=== PATIENT | male | born 1980 | race Two or more races ===

== ENCOUNTER 2025-02-21 13:25 | Emergency (ER) | payer SELFPAY ==
[~2025-02-21] VITALS: Ht 175.3 cm; Wt 110.8 kg
--- NOTE | 2025-02-21 13:41 | ED.PDOC ---
History of Present Illness HPI Comments 44-year-old male with PMHx Lung Cancer presents with a chief complaint of right foot pain x 2 days. Patient mentions that in the past he jumped from a height and landed on his heels which ended up requiring surgery. Patient had surgery to his bilateral feet. Patient is now reporting that for the past 2 days he has been having pain to his right heel. Patient is ambulatory with steady gait at this time. Chief Complaint: Lower Extremity Time Seen by MD: 13:34 Reviewed Notes: Nurses Notes, Medications, Allergies Information Source: Patient Mode of Arrival: Ambulatory Severity: Moderate Timing: Days Duration: Since onset Prehospital treatment: None Past Medical History PAST MEDICAL HISTORY: Cancer (LUNG) Surgical History: Appendectomy, Cholecystectomy, Tonsillectomy Surgical History (Other): Back Surgery, Bilateral Foot Surgery Family History Family History: Reviewed,noncontributory to illness Social History Smoker: Cigarettes Alcohol: Sober Drugs: Marijuana Lives In: Home Constitutional: denies: chills, diaphoresis, fatigue, fever, malaise, sweats, weakness, others EENTM: denies: blurred vision, double vision, ear bleeding, ear discharge, ear drainage, ear pain, ear ringing, eye pain, eye redness, hearing loss, mouth pain, mouth swelling, nasal discharge, nose bleeding, nose congestion, nose pain, photophobia, tearing, throat pain, throat swelling, voice changes, others Respiratory: denies: cough, hemoptysis, orthopnea, SOB at rest, shortness of breath, SOB with excertion, stridor, wheezing, others Cardiovascular: denies: chest pain, dizzy spells, diaphoresis, Dyspnea on exertion, edema, irregular heart beat, left arm pain, lightheadedness, palpitations, PND, syncope, others Gastrointestinal: denies: abdomen distended, abdominal pain, blood streaked bowels, constipated, diarrhea, dysphagia, difficulty swallowing, hematemesis, melena, nausea, poor appetite, poor fluid intake, rectal bleeding, rectal pain, vomiting, others Genitourinary: denies: burning, dysuria, flank pain, frequency, hematuria, incontinence, penile discharge, penile sore, pain, testicle pain, testicle swelling, urgency, others Neurological: denies: dizziness, fainting, headache, left sided numbness, left sided weakness, numbness, paresthesia, pre-existing deficit, right sided numbness, right sided weakness, seizure, speech problems, tingling, tremors, weakness, others Musculoskeletal: reports: muscle pain; denies: back pain, gout, joint pain, joint swelling, muscle stiffness, neck pain, others Integumetry: denies: bruises, change in color, change in hair/nails, dryness, laceration, lesions, lumps, rash, wounds, others Allergic/Immunocompromised: denies: Difficulty Healing, Frequent Infections, Hives, Itching, others Hematologic/Lymphatic: denies: anemia, blood clots, easy bleeding, easy bruising, swollen glands, others Endocrine: denies: excessive hunger, excessive sweating, excessive thirst, excessive urination, flushing, intolerance to cold, intolerance to heat, unexplained weight gain, unexplained weight loss, others Psychiatric: denies: anxiety, bipolar disorder, depression, hopeless, panic disorder, schizophrenia, sleepless, suicidal, others All Other Systems: Reviewed and Negative Physical Exam General Appearance: No Apparent Distress HEENT: Normal ENT Inspection, Pharynx Normal, TMs Normal Neck: Full Range of Motion, Non-Tender, Normal, Normal Inspection Respiratory: Chest Non-Tender, Lungs Clear, No Accessory Muscle Use, No Respiratory Distress, Normal Breath Sounds Cardiovascular: No Edema, No JVD, No Murmur, No Gallop, Normal Peripheral Pulses, Regular Rate/Rhythm Breast Exam: Deferred Gastrointestinal: No Organomegaly, Non Tender, No Pulsatile Mass, Normal Bowel Sounds, Soft Genitalia: Deferred Pelvic: Deferred Rectal: Deferred Extremities: No calf tenderness, Normal capillary refill, No pedal edema Musculoskeletal : Location: Right Extremity Location: Foot Apperance: Tenderness: Moderate (Right calcaneal tenderness) Neurologic: Alert, crab fisherman II-XII nml as Tested, No Motor Deficits, Normal Affect, Normal Mood, No Sensory Deficits Cerebellar Function: Normal Reflexes: Normal Skin: Dry, Normal Color, Warm Lymphatic: No Adenopathy Was a procedure done? Was a procedure done?: No Differential Dx Considerations may include: Fracture, strain, dislocation X-Ray, Labs, Meds, VS Vital Signs Date Time Temp Pulse Resp B/P (MAP) Pulse Ox O2 Delivery O2 Flow Rate FiO2 02/21/25 13:38 97.8 59 16 159/95 (116) 97 97.8 X-ray of the calcaneal bone is negative at this time The patient was being discharged The patient will follow up with the primary care doctor The patient will return to the emergency department's condition worsens Images Reviewed?: Images reviewed and evaluated by me Time of 1ST Reevaluation: 14:04 Reevaluation 1ST: Unchanged Patient Education/Counseling: Diagnosis, Treatment, Prognosis, Need For Follow Up Family Education/Counseling: No Family Present Departure 1 Departure Time of Disposition: 14:26 Impression: Primary Impression: Foot pain Qualified Codes: M79.672 - Pain in left foot Disposition: 01 HOME / SELF CARE / HOMELESS Condition: Fair Discharged With: Self Critical Care Note Critical Care Time?: No Stability Stability form required: No Heart Score Heart Score: Heart Score Response (Comments) Value History N/A 0 EKG N/A 0 Age N/A 0 Risk Factors N/A 0 Troponin N/A 0 Total 0 I personally scribed for FLORENTIN CLAYTON MD ([email or web address]) on 02/21/25 at 13:41. Electronically submitted by Tin Aguilera ([email or web address]). FLORENTIN CLAYTON MD Feb 21, 2025 13:41
--- NOTE | 2025-02-21 14:02 | DVH ---
XY R CALCANEUS XRAY, HISTORY: right foot pain TECHNICAL DATA: Lateral and Maurice-Beath views were obtained of the right calcaneus. COMPARISON: None FINDINGS: Old appearing fracture deformity of the os calcis . There are arthrodesis screws of the calcaneal najma nt. IMPRESSION: 1. No acute bony pathology
[2025-02-21 14:34] VITALS: BP 151/91; PULSE 91; RESP 15; TEMP 97.6; O2SAT 91
== END 2025-02-21 14:37 | disposition home or self-care (01) ==
LOC: ER 13:25
DX: M79.671 Pain in right foot (principal); F12.90 Cannabis use, unspecified, uncomplicated; F17.210 Nicotine dependence, cigarettes, uncomplicated; Z90.89 Acquired absence of other organs; Z90.49 Acquired absence of other specified parts of digestive tract; Z98.890 Other specified postprocedural states
CPT/HCPCS: 73650

== ENCOUNTER 2025-03-09 09:42 | Emergency (ER) | payer OTHER ==
[~2025-03-09] VITALS: Ht 175.3 cm; Wt 108.8 kg
--- NOTE | 2025-03-09 10:18 | ED.PDOC ---
HPI Comments 44 year old male presents to the ED with chief complaint of chest pain. Patient reports that he has been experiencing left sided chest pressure/sharp pain with associated chills for the past 3 days. Patient relays that he previously had lung lobe removal surgery to his left lung due to lung cancer. Patient states he has also been experiencing a chronic headache since 11/26/24, taking Excedrin daily with no relief in pain noted. Patient denies any N/V, dizziness, SOB, coug h, nasal congestion, or fever. Chief Complaint: Chest Pain Time Seen by MD: 10:15 Primary Care Provider: none Reviewed Notes: Nurses Notes, Medications, Allergies Allergies: Coded Allergies: Hydrochlorothiazide (Verified Allergy, Severe, 02/21/25) Information Source: Patient Mode of Arrival: Ambulatory Severity: Moderate Timing: Days Duration: Since onset Prehospital treatment: None Location: Chest (L) Quality: Sharp, Pressure Onset: At Rest Cardiac Risk Factors: None PE Risk Factors: None History of: None Associated Signs and Symptoms: None Past Medical History PAST MEDICAL HISTORY: Cancer Surgical History: Appendectomy, Cholecystectomy, Tonsillectomy Surgical History (Other): Back surgery, lung lobe removal surgery Family History Family History: Reviewed,noncontributory to illness, Family hx of Cancer Social History Smoker: Cigarettes Alcohol: Sober Drugs: Marijuana Lives In: Home Constitutional: reports: chills; denies: diaphoresis, fatigue, fever, malaise, sweats, weakness, others EENTM: denies: blurred vision, double vision, ear bleeding, ear discharge, ear drainage, ear pain, ear ringing, eye pain, eye redness, hearing loss, mouth pain, mouth swelling, nasal discharge, nose bleeding, nose congestion, nose pain, photophobia, tearing, throat pain, throat swelling, voice changes, others Respiratory: denies: cough, hemoptysis, orthopnea, SOB at rest, shortness of breath, SOB with excertion, stridor, wheezing, others Cardiovascular: reports: chest pain; denies: dizzy spells, diaphoresis, Dyspnea on exertion, edema, irregular heart beat, left arm pain, lightheadedness, palpitations, PND, syncope, others Gastrointestinal: denies: abdomen distended, abdominal pain, blood streaked bowels, constipated, diarrhea, dysphagia, difficulty swallowing, hematemesis, melena, nausea, poor appetite, poor fluid intake, rectal bleeding, rectal pain, vomiting, others Genitourinary: denies: burning, dysuria, flank pain, frequency, hematuria, incontinence, penile discharge, penile sore, pain, testicle pain, testicle swelling, urgency, others Neurological: reports: headache; denies: dizziness, fainting, left sided numbness, left sided weakness, numbness, paresthesia, pre-existing deficit, right sided numbness, right sided weakness, seizure, speech problems, tingling, tremors, weakness, others Musculoskeletal: denies: back pain, gout, joint pain, joint swelling, muscle pain, muscle stiffness, neck pain, others Integumetry: denies: bruises, change in color, change in hair/nails, dryness, laceration, lesions, lumps, rash, wounds, others Allergic/Immunocompromised: denies: Difficulty Healing, Frequent Infections, Hives, Itching, others Hematologic/Lymphatic: denies: anemia, blood clots, easy bleeding, easy bruising, swollen glands, others Endocrine: denies: excessive hunger, excessive sweating, excessive thirst, excessive urination, flushing, intolerance to cold, intolerance to heat, unexplained weight gain, unexplained weight loss, others Psychiatric: denies: anxiety, bipolar disorder, depression, hopeless, panic disorder, schizophrenia, sleepless, suicidal, others All Other Systems: Reviewed and Negative Physical Exam General Appearance: No Apparent Distress HEENT: Normal ENT Inspection, Pharynx Normal, TMs Normal Neck: Full Range of Motion, Non-Tender, Normal, Normal Inspection Respiratory: Chest Non-Tender, Lungs Clear, No Accessory Muscle Use, No Re spiratory Distress, Normal Breath Sounds Cardiovascular: No Edema, No JVD, No Murmur, No Gallop, Normal Peripheral Pulses, Regular Rate/Rhythm Breast Exam: Deferred Gastrointestinal: No Organomegaly, Non Tender, No Pulsatile Mass, Normal Bowel Sounds, Soft Genitalia: Deferred Pelvic: Deferred Rectal: Deferred Extremities: No calf tenderness, Normal capillary refill, Normal inspection, Normal range of motion, Non-tender, No pedal edema Musculoskeletal : Apperance: Normal Neurologic: Alert, campaign management specialist II-XII nml as Tested, No Motor Deficits, Normal Affect, Normal Mood, No Sensory Deficits Cerebellar Function: Normal Reflexes: Normal Skin: Dry, Normal Color, Warm Lymphatic: No Adenopathy EKG EKG : Pulse Rate (adult): 96 [place]: Normal Cardiac Rhythm: NSR Block: None Hypertrophy: None ST: Normal Was a procedure done? Was a procedure done?: No CP Differential Dx Differential Diagnosis: Angina, IN Differential Diagnosis: CHF Differential Diagnosis: Pericarditis X-Ray, Labs, Meds, VS Vital Signs Date Time Temp Pulse Resp B/P (MAP) Pulse Ox O2 Delivery O2 Flow Rate FiO2 03/09/25 12:10 98.0 98 18 140/97 (111) 96 98.0 03/09/25 12:10 98 18 96 Room Air* 0 21 03/09/25 11:04 104 03/09/25 10:18 96 03/09/25 10:05 98.1 118 18 160/98 (118) 98 98.1 03/09/25 09:54 96 Lab Test 03/09/25 10:51 03/09/25 10:00 Range/Units Troponin I High Sensitivity < 3 L < 3 L </=54 ng/L White Blood Count 6.9 4.4-10.8 10^3/uL Red Blood Count 5.27 4.5-5.90 10^6/uL Hemoglobin 16.0 13.5-17.5 g/dL Hematocrit 46.7 41.0-53.0 % Mean Corpuscular Volume 88.7 80.0-100.0 fL Mean Corpuscular Hemoglobin 30.3 28.0-32.0 pg Mean Corpuscular Hemoglobin Concent 34.1 32.0-36.0 g/dL Red Cell Distribution Width 15.6 H 11.8-14.3 % Platelet Count 300 140-450 10^3/uL Mean Platelet Volume 9.0 6.9-10.8 fL Neutrophils (%) (Auto) 59.3 37.0-80.0 % Lymphocytes (%) (Auto) 30.8 10.0-50.0 % Monocytes (%) (Auto) 8.5 0.0-12.0 % Eosinophils (%) (Auto) 0.9 0.0-7.0 % Basophils (%) (Auto) 0.5 0.0-2.0 % Neutrophils # (Auto) 4.1 1.6-8.6 10 ^3/uL Lymphocytes # (Auto) 2.1 0.4-5.4 10 ^3/uL Monocytes # (Auto) 0.6 0-1.3 10 ^3/uL Eosinophils # (Auto) 0.1 0-0.8 10 ^3/uL Basophils # (Auto) 0 0-0.2 10 ^3/uL Nucleated Red Blood Cells 0.1 % Urine Color Yellow Yellow Urine Clarity Clear Clear Urine pH 5.5 5.0-9.0 Urine Specific [place] 1.039 H 1.001-1.035 Urine Protein Trace H Negative Urine Ketones Negative Negative Urine Blood Negative Negative /uL Urine Nitrite Negative Negative Urine Bilirubin Negative Negative Urine Urobilinogen 2 H Negative mg/dL Urine Leukocyte Esterase Negative Negative /uL Urine RBC 1 0 - 3 /hpf Urine Microscopic WBC 1 0-3 /HPF Urine Squamous Epithelial Cells Few <5 /hpf Urine Bacteria Few H None Seen /hpf Urine Mucus Few None Seen Urine Glucose Normal Normal mg/dL Sodium Level 140 136-145 mmol/L Potassium Level 4.2 3.5-5.1 mmol/L Chloride Level 107 98-107 mmol/L Carbon Dioxide Level 25 20-31 mmol/L Anion Gap 8 5-15 Blood Urea Nitrogen 25 H 9-23 mg/dL Creatinine 0.91 0.700-1.30 mg/dL Glomerular Filtration Rate Calc 106 >90 mL/min BUN/Creatinine Ratio 27.5 H 10.0-20.0 Serum Glucose 100 74-106 mg/dL Calcium Level 10.8 H 8.7-10.4 mg/dL Urine Opiates Screen Neg NEGATIVE Urine Fentanyl Screen Neg NEGATIVE Urine Barbiturates Screen Neg NEGATIVE Urine Phencyclidine Screen Neg NEGATIVE Urine Amphetamines Screen Pos NEGATIVE Urine Benzodiazepines Screen Pos NEGATIVE Urine Cocaine Screen Neg NEGATIVE Urine Cannabinoids Screen Neg NEGATIVE Chest XR indicates: 1. Right basilar opacity with blunting of the costophrenic angles which likely due to scarring, less likely small pleural effusion. 2. No acute intrathoracic process is otherwise identified here. The urine tox is positive for methamphetamines and benzodiazepines The urine test is negative for infection The CBC is within normal limits The troponin levels negative x2 The patient was being discharged and will follow up with the primary care doctor We discussed the findings with the patient and he is in agreement with the management The patient was discharged Images Reviewed?: Images reviewed and evaluated by me Time of 1ST Reevaluation: 12:47 Reevaluation 1ST: Improved Patient Education/Counseling: Diagnosis, Treatment, Prognosis, Need For Follow Up Family Education/Counseling: No Family Present Additional Information -Reviewed patient's previous visit(s): 02/21/25 for foot pain - The following tests were ordered, and results were reviewed by me: Chest XR, CBC, BMP, UA, UDS, Troponin, EKG - Additional information was gathered from interviewing the following independent Historian: None - I reviewed and agreed with the following test results read by other provider: Chest XR - I discussed treatments and results with medical personnel and: patient Comprehensive systems review obtained and negative except for what is stated in the HPI. Departure 1 Departure Time of Disposition: 12:34 Impression: Primary Impression: Musculoskeletal chest pain Additional Impression: Methamphetamine use Disposition: HOME / SELF CARE / HOMELESS Condition: Fair Discharged With: Self Critical Care Note Critical Care Time?: No Stability Stability form required: No Heart Score Heart Score: Heart Score Response (Comments) Value History Slightly Suspicious 0 EKG Normal 0 Age <45 0 Risk Factors No known risk factors 0 Troponin Normal limit 0 Total 0 I personally scribed for FLORENTIN CLAYTON MD ([email or web address]) on 03/09/25 at 10:18. Electronically submitted by Reddy Newton ([email or web address]). I personally scribed for FLORENTIN CLAYTON MD ([email or web address]) on 03/09/25 at 10:23. Electronically submitted by Reddy Newton ([email or web address]). I personally scribed for FLORENTIN CLAYTON MD ([email or web address]) on 03/09/25 at 11:05. Electronically submitted by Reddy Newton ([email or web address]). I personally scribed for FLORENTIN CLAYTON MD ([email or web address]) on 03/09/25 at 11:05. Electronically submitted by Reddy Newton ([email or web address]). FLORENTIN CLAYTON MD Mar 09, 2025 10:18
--- NOTE | 2025-03-09 11:03 | DVH ---
EXAM: XY CHEST TWO VIEWS ROUTINE HISTORY: CP COMPARISON: None TECHNIQUE: Frontal and lateral views of the chest were performed. FINDINGS: There is blunting of the right lateral and posterior costophrenic angles. No other infiltrates, pneum othorax, pulmonary edema, or pleural effusions. The heart is not enlarged. No fractures are identif ied about the bony thorax. Surgical clips in the upper abdomen likely due to prior cholecystectomy. T here are postoperative changes of right long head biceps tenodesis. There is thoracic degenerative di sc disease. There is mild anterior wedging of multiple lower thoracic vertebral bodies. IMPRESSION: 1. Right basilar opacity with blunting of the costophrenic angles which likely dueto scarring, less l ikely small pleural effusion. 2. No acute intrathoracic process is otherwise identified here.
[2025-03-09 11:07] LABS: Anion Gap 8 (5-15); Carbon Dioxide 25 mmol/L (20-31); Potassium 4.2 mmol/L (3.5-5.1); Sodium 140 mmol/L (136-145)
[2025-03-09 11:08] LABS: Chloride 107 mmol/L (98-107)
[2025-03-09 11:09] LABS: Calcium 10.8 mg/dL (8.7-10.4)
[2025-03-09 11:13] LABS: BUN/Creatinine Ratio 27.5 (10.0-20.0); Glucose 100 mg/dL (74-106)
[2025-03-09 11:14] LABS: Blood Urea Nitrogen 25 mg/dL (9-23); Urine Bacteria FEW /hpf (None Seen); Urine Blood Negative /uL (Negative); Urine Clarity Clear (Clear); Urine Color Yellow (Yellow); Urine Mucus FEW (None Seen); Urine Protein, UAD TRACE (Negative); Urine Specific Gravity 1.039 (1.001-1.035); Urine Squamous Epithelial Cell FEW /hpf (<5); Urine Urobilinogen 2 mg/dL (Negative); Urine WBC 1 /HPF (0-3); Urine pH 5.5 (5.0-9.0)
[2025-03-09 11:31] LABS: Amphetamine Screen, Urine Pos (NEGATIVE); Barbiturate Scree,Urine Neg (NEGATIVE); Benzodiazephine Screen, Urine Pos (NEGATIVE); Cannabinoid Screen, Urine Neg (NEGATIVE); Cocaine Screen, Urine Neg (NEGATIVE); Opiate Scree,Urine Neg (NEGATIVE); Phencyclidine Screen, Urine Neg (NEGATIVE)
[2025-03-09 11:33] LABS: Basophils # (auto) 0 10 ^3/uL (0-0.2); Basophils % (auto) 0.5 % (0.0-2.0); Eosinophils # (auto) 0.1 10 ^3/uL (0-0.8); Eosinophils % (auto) 0.9 % (0.0-7.0); Hematocrit 46.7 % (41.0-53.0); Lymphocytes # (auto) 2.1 10 ^3/uL (0.4-5.4); Lymphocytes % (auto) 30.8 % (10.0-50.0); Mean Corpuscular Hemoglobin 30.3 pg (28.0-32.0); Mean Corpuscular Hgb Conc. 34.1 g/dL (32.0-36.0); Mean Corpuscular Volume 88.7 fL (80.0-100.0); Monocytes # (auto) 0.6 10 ^3/uL (0-1.3); Monocytes % (auto) 8.5 % (0.0-12.0); Neutrophils # (auto) 4.1 10 ^3/uL (1.6-8.6); Neutrophils % (auto) 59.3 % (37.0-80.0); Nucleated Red Blood Cells % 0.1 %; Platelet Count (auto) 300 10^3/uL (140-450); Red Blood Cells 5.27 10^6/uL (4.5-5.90); Red Cell Distribution Width 15.6 % (11.8-14.3); White Blood Cell 6.9 10^3/uL (4.4-10.8)
[2025-03-09 12:10] VITALS: BP 140/97; PULSE 98; RESP 18; TEMP 98; O2SAT 96
[2025-03-09] MEDS: ASPirin 81 mg TAB PO ONE (12:18)
--- NOTE | 2025-03-09 14:14 | ECG ---
[facility] Test Date: 2025-03-09 Test Time: 09:54:40 Pat Name: MAC HOWE Department: EMERGENCY Room: Gender: M Stablehand: YF : 1980 Requested By: XUAN MOLINA Order Number: [id number] Reading MD: Enrique De La Garza Measurements Intervals [place] Rate: 96 P: 34 [place]: 130 QRS: 15 QRSD: 99 T: 80 QT: 322 QTc: 407 Interpretive Statements Sinus rhythm Abnormal R-wave progression, early transition Electronically Signed On 03-11-2025 20:46:19 PDT by Enrique De La Garza Please click the below link to view image of tracing.
--- NOTE | 2025-03-10 06:46 | ECG ---
[facility] Test Date: 2025-03-09 Test Time: 11:04:07 Pat Name: MAC HOWE Department: ED Room: Gender: M Weight Loss Consultant: : 1980 Requested By: XUAN MOLINA Order Number: [id number] Reading MD: Enrique De La Garza Measurements Intervals [place] Rate: 104 P: 77 [place]: 125 QRS: 42 QRSD: 86 T: 18 QT: 306 QTc: 403 Interpretive Statements Sinus tachycardia Borderline T wave abnormalities Baseline wander in lead(s) V1 Electronically Signed On 03-11-2025 20:46:30 PDT by Enrique De La Garza Please click the below link to view image of tracing.
== END 2025-03-09 12:52 | disposition home or self-care (01) ==
LOC: ER 09:42
DX: R07.9 Chest pain, unspecified (principal); F15.90 Other stimulant use, unspecified, uncomplicated; F17.210 Nicotine dependence, cigarettes, uncomplicated; F12.90 Cannabis use, unspecified, uncomplicated; Z90.89 Acquired absence of other organs; Z90.49 Acquired absence of other specified parts of digestive tract; Z85.118 Personal history of other malignant neoplasm of bronchus and lung; Z79.899 Other long term (current) drug therapy
CPT/HCPCS: 36415; 71046; 80048; 80307; 81001; 84484; 85025; 93005